=== PATIENT | female | born 1960 | race Caucasian/White ===

== ENCOUNTER → 2020-02-26 | Outpatient (CLI) | payer OTHER | LOC: SJCVCIMAG 11:49 | PROVIDERS: ATTEND Internal Medicine | DX: I08.8 Other rheumatic multiple valve diseases (principal); E66.9 Obesity, unspecified ==

== ENCOUNTER → 2020-08-31 | Outpatient (CLI) | payer OTHER ==
--- NOTE | 2020-09-02 15:01 | SLE ---
[facility] [place] [address] POLYSOMNOGRAPHY STUDY Name: MELVINA SOLOMON Room #: REG [facility]#: [id number] Admission: 08/31/20 Attend Phys: Carlos Wharton Discharge: Date of : 64 Report #: [id number] THIS REPORT FOR: cc: Carol Rangel MD, Julie MD Khan, Aman U. MD ~ DOC #: [id number] cc: MD Jorden Forbes MD DATE OF SERVICE: 08/31/2020 SLEEP STUDY ATTENDING PHYSICIAN: Dr. Carlos Wharton. The patient is 60-year-old who weighs 283 pounds with a BMI of 45.7. The patient's Kite score was 7. The patient underwent split night study performed at [place] [facility]. During the night study, the patient spent 466 minutes in bed and slept for 403 minutes with a sleep efficiency of 86%. Sleep latency was 13.3 minutes with a REM latency of 171 minutes. Sleep architecture showed increased stage I and stage II sleep, normal slow wave and normal REM sleep. During the initial diagnostic portion of the study, the patient slept for 237 minutes. During that time, the patient had 1 obstructive apnea, no mixed apnea, 5 central apneas and 31 hypopneas. The patient's AHI was 9.4 per hour with a REM AHI of 47.5 per hour and supine AHI of 9.4 per hour. EKG monitoring revealed an average heart rate of 62 beats per minute. No arrhythmias observed. PLMS were seen at an index of 18 per hour and 3.5 per hour caused EEG arousals. Nocturnal oximetry study revealed an average oxygen saturation of 95% with a lowest of 80%. Two minutes were spent with oxygen saturation less than 89%. The patient met the criteria for CPAP initiation. It was started at 6 cm water and titrated up to 14 cm water. At the final pressure, the patient slept for 90 minutes including 24 minutes of supine REM sleep. The patient's AHI was reduced to 3.3 per hour and oxygen saturation remained above 90%. IMPRESSION: 1. Mild obstructive sleep apnea with worsening during REM sleep. Total AHI 9.4 per hour with a REM AHI of 47.5 per hour. [facility] [address] [place] [address] POLYSOMNOGRAPHY STUDY Name: MELVINA SOLOMON Room #: REG [facility].#: [id number] Admission: 08/31/20 Attend Phys: Carlos Wharton Discharge: Date of : 64 Report #: [id number] 2. No clinically significant nocturnal hypoxia. 3. Mild to moderate PLMS. RECOMMENDATIONS: 1. CPAP at 14 cm of water completely eliminated the patient's sleep apnea, should be used on a nightly basis. 2. Follow up in four to six weeks to assess compliance with CPAP and to document clinical improvement. 3. Weight loss is strongly advised. 4. Avoid [employer] depressants. 5. Cautioned regarding driving until symptoms of sleep apnea resolved with the use of CPAP. 6. PLMS does not need to be treated unless the patient has symptoms of restless legs during the day. Jorden Rosa MD AUK/KDA <ELECTRONICALLY SIGNED> By: Jorden Rosa MD 09/02/20 1501 [id number] Jorden Rosa MD /nt
== END ==
LOC: SLEEPLAB 06-01 09:54
PROVIDERS: ATTEND Internal Medicine
DX: G47.33 Obstructive sleep apnea (adult) (pediatric) (principal); G47.61 Periodic limb movement disorder